=== PATIENT | male | born 1930 | race Caucasian/White ===

== ENCOUNTER 2017-09-17 08:36 | Outpatient (CLI) | payer MEDICARE ==
[~2017-09-17] VITALS: Ht 167.6 cm; Wt 80.0 kg
[2017-09-17] VITALS (13 sets, daily range): BP systolic 120–150; BP diastolic 51–78; PULSE 51–68
[~2017-09-17 08:36] MED LIST: 00186-0372-20 IH; ALDACTONE 25MG25 M1 PO; ALDACTONE50 MG PO; ASPIRIN E.C. 8181 MG PO; CALCIUM 600 PLU1 TAB PO; COREG 6.256.25 MG/TA PO; LASIX 20MG TABL20 MG PO; LASIX 40MG TABL40 MG PO; MULTIPLE VITAMI1 CAP PO; PLAVIX 75MG TAB75 MG PO; PRAVACHOL80 MG PO; PRINIVIL20 MG PO; PROAIR HFA0.09 MG/AC IH; PULMICORT0.5 MG/2 M IH; RT SPIRIVA18 MCG IH; ZEBETA 5MG5 MG PO; ZOCOR 40MG40 MG PO
== END 2017-09-17 14:00 | disposition home or self-care (01) ==
LOC: COL.RAD 08:36
DX: C34.91 Malignant neoplasm of unspecified part of right bronchus or lung (principal); J95.811 Postprocedural pneumothorax; J43.9 Emphysema, unspecified; H91.90 Unspecified hearing loss, unspecified ear; J84.89 Other specified interstitial pulmonary diseases; Z87.891 Personal history of nicotine dependence
CPT/HCPCS: 27584